=== PATIENT | male | born 1945 | race Caucasian/White ===

== ENCOUNTER 2023-05-13 23:26 | Emergency (ER) | payer MEDICARE, MEDICAID, SELFPAY ==
[2023-05-13 23:29] VITALS: BP 209/109; PULSE 110; RESP 16; O2SAT 93
--- NOTE | 2023-05-13 23:30 | DI.RAD_ITS ---
Exam(s) XR FEMUR LT EXAM: XR FEMUR LT CLINICAL HISTORY: hip pain, fall. TECHNIQUE: 2D digital imaging was performed. COMPARISON: No exams were available for comparison FINDINGS: 3 views No evidence of hip nor femur fracture. No hip joint space narrowing. Bone density normal. No osseo us lesions. IMPRESSION: No fracture evident. DATA REPOSITORY: RADIATION DOSE DELIVERED:
--- NOTE | 2023-05-13 23:30 | DI.RAD_ITS ---
Exam(s) XR CHEST 1V IN DI DEPT EXAM: XR CHEST 1V IN DI DEPT CLINICAL HISTORY: fall, copd hypoxia. TECHNIQUE: 2D digital imaging was performed. COMPARISON: CT CT CHEST PE ABD PELVIS W from 05/14/2023 FINDINGS: Single AP portable view. Heart size is upper normal. The mediastinum is not widened. There are COPD findings. Bilateral interstitial disease also noted there appears to be a possible le ft pneumothorax versus prominent confluent peripheral bullae, as there do appear to be lung markings lateral to the above described finding. Small right pleural effusion noted. No acute fractures. IMPRESSION: As above. Recommend chest CT scan. DATA REPOSITORY: RADIATION DOSE DELIVERED:
--- NOTE | 2023-05-13 23:30 | DI.RAD_ITS ---
Exam(s) XR PELVIS AP EXAM: XR PELVIS AP CLINICAL HISTORY: left hip pain fall. TECHNIQUE: 2D digital imaging was performed. COMPARISON: No exams were available for comparison FINDINGS: Single AP view. No evidence of fracture. Also no hip joint space narrowing. SI joints unremarkable. Bone density n ormal. No osseous lesions IMPRESSION: No significant osseous findings in the pelvis and hips. DATA REPOSITORY: RADIATION DOSE DELIVERED:
[2023-05-13 23:31] VITALS: O2SAT 91
[2023-05-13 23:33] VITALS: BP 209/109; PULSE 105; O2SAT 93
[2023-05-13 23:40] VITALS: PULSE 108; RESP 27; O2SAT 92
--- NOTE | 2023-05-13 23:40 | ED.GENADUL_ITS ---
Discharge Plan Disposition Patient Disposition: Transfer-Acute Inpatient Care Specific Acute Inpt Facility: [facility] Discharge Details Chief Complaint: Fall/Non TraumaCriteria Clinical Impression: Pelvic fracture, Hypoxia, Tachycardia, Pelvic hematoma, male Primary Care Provider: Eyad Gambino ED Provider: Eyad Garrett Home Meds and New Rx's Prescriptions: No Action furosemide 40 mg Tablet 40 mg PO DAILY Medical Decision Making 77-year-old male history of COPD on home oxygen, presents after fall while ambulating in the dark with his walker, fell onto his left side hitting his hip, pain to left hip, no to be tachycardic hypertensive and hypoxic on arrival, requiring nasal cannula at his baseline rate, hypertension and tachycardia likely related to pain, alert oriented interactive no evidence of cranial thoracic or abdominal trauma, bilateral motion of lower extremities intact however pain at left hip with movement of left lower extremity, warm well- perfused extremities neurovascular exam intact. Consider contusion versus dislocation versus fracture of hip versus pelvic fracture. Low suspicion for intracranial injury or thoracoabdominal trauma. Trial of Toradol Tylenol Lidoderm patch, screening x-ray AP pelvis and left femur. 2: 50 initial x-ray was read as concern for pneumothorax however CT chest more consistent with multiple large bulla, initial CT image of abdomen pelvis concerning for pelvic fracture and possible pelvic hematoma, awaiting official read, have added type and screen patient is receiving initial fluid bolus, will consider transfusion given concern for pelvic source of bleeding 3: 25 superior and inferior left pubic ramus fracture with large pelvic hematoma and active extravasation. Have ordered 2 units PRBC given active bleeding and vital signs. Discussed case with trauma team at [facility], Dr. Hutchison has acceptedfor transfer. Evidence of chronic/subacute T1 and T12-L1 L4 compression fractures, no neck discomfort no neurologic dysfunction, given history and physical low suspicion for cervical spine fracture, also patient severely kyphotic and requiring respiratory support with nonrebreather at this point I do not wish to limit his respiratory effort any further with a c-collar. HPI General Date/Time Provider Initiated Documentation: 05/13/23 23:37 . HPI Narrative: 77-year-old male history of COPD on 2 L home nasal oxygen, presents after tripping in the dark this evening while ambulating with his walker, fell onto his left side endorsing left hip pain, no head injury no loss of consciousness no other complaints at this time. Related Data Home Medications Medication Instructions Recorded Confirmed furosemide 40 mg tablet 40 mg PO DAILY 05/13/23 05/13/23 Allergies Allergy/AdvReac Type Severity Reaction Status Date / Time No Known Allergies Allergy Unverified 05/13/23 23:43 Review of Systems Narrative: Review of Systems Constitutional: negative Eyes: negative ENT: negative Cardiovascular: negative Respiratory: negative Gastrointestinal: negative : negative Musculoskeletal: Hip pain Skin: negative Neurologic: negative Psych: negative PFSH All Active Problems (Updated 05/14/23 @ 03:30 by Eyad Garrett MD) Pelvic fracture (Acute) Hypoxia (Acute) Tachycardia (Acute) Pelvic hematoma, male (Acute) Social History Smoking/Tobacco Use Status: Former Tobacco Use Smoking risk assessment performed?: Yes Alcohol Intake: never Drug use: Current Sobriety Substance use type: does not use Do you feel safe at home: Yes Do you feel safe in your relationship?: Yes Exam Narrative Exam Narrative: Physical Examination General: alert, awake, cooperative, resting comfortably, no acute distress HEENT: normocephalic, atraumatic; PERRL, EOM intact, conjunctiva normal; no nasal discharge; moist mucous membranes, oral and pharyngeal mucosa normal, tolerating secretions Neck: supple, trachea midline; full ROM Chest: normal to inspection Respiratory: normal respiratory effort, speaking in full sentences, clear to auscultation, no wheezing, rales or rhonchi Cardiac: regular rate, regular rhythm, S1S2 intact, no murmurs rubs or gallops GI: abdomen soft, non-tender, non-distended; no palpable mass or hep atosplenomegaly Skin: no lesions, rashes or trauma appreciated Neuro: AAOx3, normal speech, moving all extremities Extremities: Pelvis stable, able to raise both legs off of bed however discomfort in left hip with movement, range of motion bilateral knees ankles feet intact, warm well perfused extremity sensate no crepitus deformity or foreshortening appreciated Psych: Appropriate mood and affect
[2023-05-13 23:47] VITALS: BP 177/101; PULSE 106; PULSE 107; RESP 29; O2SAT 97
[2023-05-13 23:50] VITALS: PULSE 109; RESP 30
[2023-05-14] VITALS (51 sets, daily range): BP systolic 67–205; BP diastolic 48–133; PULSE 108–129; RESP 18–31; TEMP 36.2; O2SAT 87–94
[2023-05-14] MEDS: Acetaminophen 325 MG TAB 650 MG PO (00:01)
[2023-05-14] MEDS: Lidocaine 5% Patch 1 PATCH TP (00:02)
[2023-05-14] MEDS: Ketorolac 15 MG/ML VIAL IM (00:02)
--- NOTE | 2023-05-14 01:45 | RT.EKG_ITS ---
APPROVED REPORT Exam: Resting ECG Reason for Exam: tachycardia Patient Location: E HR:128 bpm ECG Measurements Heart Rate 128 AXIS NM 176 P 56 QRSd 71 QRS 256 QT 289 T 26 QTc 421 Conclusion Sinus tachycardia...rate> 99 Inferior infarct, old...Q >35mS, II III aVF Consider anterior infarct...Q >30mS in V2-V5 sinus tach, left axis, normal intervals
--- NOTE | 2023-05-14 01:45 | DI.CT_ITS ---
Exam(s) CT CHEST PE ABD PELVIS W EXAM: CT CHEST PE ABD PELVIS W CLINICAL HISTORY: tachy, hypoxic hx copd fall abd pain left hip pain. TECHNIQUE: Imaging Protocol: Axial CT angiography was performed with multi-slice acquisition and m ulti-planar and/or 3D reconstructions. CONTRAST MATERIAL: Intravenous: Omnipaque 350 Contrast volume:100 ml Oral: None COMPARISON: No exams were available for comparison FINDINGS: CHEST: PULMONARY ARTERIES: There are no intra-arterial filling defects to suggest the presence of acute pulm onary emboli. LUNGS: There is severe COPD findings including severe bullous disease bilaterally, more prominent and confluent on the left side and this accounting for the appearance of the chest x-ray. There is no t rue pneumothorax. There is some atelectasis/infiltrate in both lower lobes. Also small bilateral pl eural effusions. MEDIASTINUM: There is no hilar nor mediastinal adenopathy. Visualized thyroid unremarkable. CARDIAC: Heart size is normal. There is no pericardial effusion. There is no significant shift of t he interventricular septum.Caliber thoracic aorta is enlarged with ascending thoracic aorta measuring 4.1 cm. There is no dissection evident.. OSSEOUS: There is severe vertebra plana compression fracture of T12. There is compression fracture o f superior endplate of L1. These are age indeterminate.Also compression fracture of T7 which does no t appear acute.. ABDOMEN: Respiratory motion artifact. LIVER: There are no focal hepatic lesions nor dilatation of intrahepatic ducts. GALLBLADDER/BILIARY: No obvious gallbladder pathology. CBD is not dilated. PANCREAS: No evidence of pancreatic mass nor dilatation of the pancreatic duct. SPLEEN: Spleen is not enlarged. There are no intrasplenic lesions. Splenic and portal veins are paz nt. ADRENALS: There are no significant adrenal masses. KIDNEYS:No cysts evident. No calculi nor hydronephrosis. No solid renal masses. ABDOMINAL AORTA: Abdominal aorta is atherosclerotic and there is an abdominal aortic aneurysm which e xhibits maximum diameter of 3.7 cm. 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 No aneurysm of the left common iliac artery. LYMPH NODES: There is no retroperitoneal or para-aortic adenopathy. ABDOMINAL WALL/GI: No evidence of significant anterior abdominal wall hernia. No bowel obstruction. PELVIS: There is a right inguinal hernia which contains nonobstructed bowel loops. There is no bowel obstruction. There is also a left inguinal hernia which contains fat but no bowel loops. There is fracture of the medial aspect of the pubic rami on the left side without displacement. Ther e is significant hematoma within the pelvis adjacent to the fracture and this hematoma contains hyper dense material consistent with active hemorrhage. This hematoma measures approximately 7 cm AP x 4 c m wide and also involves the left obturator internus muscle. LYMPH NODES: There is no intrapelvic nor inguinal adenopathy. GI: No evidence of appendicitis.No evidence of sigmoid diverticulitis. URINARY BLADDER: Urinary bladder is deviated slightly towards the opposite-right side due to the sergio kevin. Wall the urinary bladder on the left side is thickened. Bladder is not distended. REPRODUCTIVE: Prostate gland size upper normal. OSSEOUS: No significant osseous lesions. IMPRESSION: 1. No evidence of acute pulmonary emboli nor pulmonary infarction. 2. Severe confluent bolus changes in the lungs, left more so than right and accounting for the appear ance of the chest x-ray earlier today. There is no true pneumothorax. Mild infiltrates in lung base s and small bilateral pleural effusions. 3. T7 and T12 compression fractures. Also L1. Age indeterminate. 4. There fractures in left anterior hemipelvis adjacent the symphysis pubis with a large adjacent hem atoma in the pelvis and evidence of active bleeding. 5. Bilateral inguinal hernias. The right inguinal hernia contains loop of bowel but without evidence of obstruction. The left contains fat only. 6. Abdominal aortic aneurysm with maximum external diameter 3.7 cm. There is also an aneurysm of th e right common iliac artery with diameter 1.9 cm. RADIATION DOSE DELIVERED: 1,148.42mGy.cm Total DLP DATA REPOSITORY: All CT scans at this facility are submitted to the National Radiology Data Registry (NRDR) Dose Index Registry (DIR) with the [employer] (A[employer]). RADIATION OPTIMIZATION: All CT scans at this facility use at least one of these dose optimization te chniques: automated exposure control; mA and/or kV adjustment per patient size (includes targeted exa ms where dose is matched to clinical indication); or iterative reconstruction.
--- NOTE | 2023-05-14 01:47 | DI.VRAD_ITS ---
PROCEDURE INFORMATION: Exam: XR Pelvis Exam date and time: 05/14/2023 12:20 AM Age: 77 years old Clinical indication: Injury or trauma; Blunt trauma (contusions or hematomas); Left; Injury date: 05/13/23; Injury details: Hip pain, fall TECHNIQUE: Imaging protocol: Radiologic exam of the pelvis. Views: 1 or 2 view. COMPARISON: No relevant prior studies available. FINDINGS: Bones/joints: No fracture or dislocation. Mild degenerative changes at both hips. Soft tissues: No significant abnormality IMPRESSION: No acute findings Dictated and Authenticated by: Ronny Tiwari MD. Ordering:TRUMAN Castano MD
--- NOTE | 2023-05-14 01:48 | DI.VRAD_ITS ---
PROCEDURE INFORMATION: Exam: XR Left Femur Exam date and time: 05/14/2023 12:22 AM Age: 77 years old Clinical indication: Injury or trauma; Blunt trauma; Thigh or upper leg; Left; Injury date: 05/13/22; Injury details: Hip pain, fall TECHNIQUE: Imaging protocol: Radiologic exam of the left femur. Views: 2 views. COMPARISON: CR XR PELVIS AP 05/14/2023 12:20 AM FINDINGS: Bones/joints: No fracture or dislocation. Mild degenerative changes at the hip and knee. Soft tissues: No significant abnormality Vasculature: Vascular calcifications. IMPRESSION: No acute findings Dictated and Authenticated by: Ronny Tiwari MD. Ordering:TRUMAN Castano MD
[2023-05-14 01:58] LABS: BE (Venous) 2 mmol/L (-2-3); HCO3 (Venous) 26 mmol/L (23-28); O2 Sat (Venous) 92 %; TCO2 (Venous) 23 mmol/L (24-29); pCO2 (Venous) 40 mmHg (41-51); pH (Venous) 7.43 (7.31-7.41); pO2 (Venous) 64 mmHg
--- NOTE | 2023-05-14 01:59 | DI.VRAD_ITS ---
PROCEDURE INFORMATION: Exam: XR Chest Exam date and time: 05/14/2023 12:28 AM Age: 77 years old Clinical indication: Patient HX: Fall, copd, hypoxia TECHNIQUE: Imaging protocol: Radiologic exam of the chest. Views: 1 view. COMPARISON: No relevant prior studies available. FINDINGS: Lungs: Coarse reticular interstitial opacities are noted bilaterally. No consolidation. Pleural spaces: There appears to be a pleural line in the left mid to upper lung with increased lucency lateral to it however there are lung markings lateral to this pleural line. Heart/Mediastinum: Heart size within normal limits. Bones/joints: No displaced rib fractures are identified. Degenerative changes in the thoracic spine IMPRESSION: 1. Probable left pneumothorax however lung markings are noted lateral to what appears to be the pleural line. Recommend CT to further evaluate 2. Coarse reticular interstitial opacities bilaterally. In the chronic setting, this can be due to fibrosis. Interstitial edema can be considered in the proper clinical setting. THIS REPORT CONTAINS FINDINGS THAT MAY BE CRITICAL TO PATIENT CARE. The findings were verbally communicated via telephone conference with Dr. Eyad Garrett at 1:58 AM EDT on 05/14/2023. The findings were acknowledged and understood. Dictated and Authenticated by: Ronny Tiwari MD. Ordering:TRUMAN Castano MD
[2023-05-14 02:00] LABS: Abs Immature Grans 0.11 10^3/uL (0.0-0.06); Absolute Basophil Count 0.06 10^3/uL (0.0-0.2); Absolute Eosinophil Count 0.02 10^3/uL (0.0-0.7); Absolute Monocyte Count 1.21 10^3/uL (0.1-0.8); Absolute Neutrophil Count 16.51 10^3/uL (1.2-6.7); Basophils % 0.3; Eosinophils % 0.1; HCT 44.7 % (40.0-50.0); HGB 15.1 g/dL (13.5-17.5); Immature Grans % 0.6; Lymphocytes % 3.9; MCH 29.9 pg (27.0-33.0); MCHC 33.8 % (32.0-36.0); MCV 89 fL (80-95); MPV 9.9 fL (8.0-11.0); Monocytes % 6.5; Neutrophils % 88.6; Platelet Count 212 10^3/uL (130-400); RBC 5.05 10^6/uL (4.36-5.78); RDW 13.9 % (11.8-14.1); RDW-SD 44.6 fL; WBC 18.63 10^3/uL (4.4-10.8)
[2023-05-14 02:01] LABS: Absolute Lymphocyte Count 0.73 10^3/uL (1.2-3.4)
[2023-05-14] MEDS: Omnipaque 350 MG/ML 100 ML BTL IJ (02:06)
[2023-05-14] MEDS: Normal Saline - Diluent 50 ML VIAL IJ (02:06)
[2023-05-14] MEDS: Normal Saline Flush 10 ML SYR IVP (02:07)
[2023-05-14 02:16] LABS: PTT Activated 26.6 sec (21.5-31.9); Prothrombin Time 10.6 sec (9.3-11.0)
[2023-05-14 02:27] LABS: ALT 23 U/L (16-63); AST 22 U/L (15-37); Albumin 3.2 g/dL (3.4-5.0); Alkaline Phosphatase 101 U/L (46-116); Anion Gap 9.8 mmol/L (3-11); BUN 23 mg/dL (7-18); Bilirubin, Total 0.9 mg/dL (0.2-1.0); CO2 24.2 mmol/L (21.0-32.0); CREATININE 0.9 mg/dL (0.70-1.30); Calcium 9.3 mg/dL (8.5-10.1); Chloride 95 mmol/L (98-107); Estimated GFR 88.51 (mL/min/1.73m2); Glucose 134 mg/dL (74-106); NT-proBNP 202 pg/mL (<300); Potassium 4.5 mmol/L (3.5-5.1); Sodium 129 mmol/L (136-145); TSH (W/Ref FT4) 3.93 uIU/mL (0.36-3.74); Total Protein 7.5 g/dL (6.4-8.2); Troponin I < 50 ng/L (<or=60)
[2023-05-14 02:40] LABS: COVID-19 PCR Negative (Negative); Influenza A PCR Negative (Negative); Influenza B PCR Negative (Negative); RSV PCR Negative (Negative)
[2023-05-14 02:43] LABS: FREE T4 1.04 ng/dL (0.76-1.46)
[2023-05-14 02:55] LABS: Source Nasopharynx
[2023-05-14] MEDS: Normal Saline 1,000 ML 1000 ML IV (02:59)
--- NOTE | 2023-05-14 03:08 | DI.VRAD_ITS ---
PROCEDURE INFORMATION: Exam: CTA Chest With Contrast Exam date and time: 05/14/2023 2:12 AM Age: 77 years old Clinical indication: Abdominal pain; Generalized; Other: Tachy, HX copd; Patient HX: Tachy, hypoxic HX copd fall abd pain left hip pain TECHNIQUE: Imaging protocol: Computed tomographic angiography of the chest with contrast. Exam focused on the arteries. 3D rendering (Not supervised by radiologist): MIP and/or 3D reconstructed images were created by the technologist. Radiation optimization: All CT scans at this facility use at least one of these dose optimization techniques: automated exposure control; mA and/or kV adjustment per patient size (includes targeted exams where dose is matched to clinical indication); or iterative reconstruction. Contrast material: OMNIPAQUE 350; Contrast volume: 100 ml; Contrast route: INTRAVENOUS (IV); COMPARISON: XR CHEST 1V IN DI DEPT 05/14/2023 12:28 AM FINDINGS: Pulmonary arteries: No evidence of pulmonary embolus. Aorta: Tortuosity of the thoracic aorta with scattered atherosclerotic calcifications. No aneurysmal dilatation or dissection. Lungs: Severe bullous changes bilaterally primarily in the upper lobes left worse than right. Bibasilar atelectasis. Pleural spaces: Small bilateral pleural effusions. Heart: Unremarkable. No cardiomegaly. No pericardial effusion. Lymph nodes: Unremarkable. No enlarged lymph nodes. Bones/joints: 60-70% anterior wedging of T7. 80-90% loss of height of T12. No rib fractures. Soft tissues: Unremarkable. IMPRESSION: 1. No pneumothorax. 2. Severe bullous changes left worse than right. This accounts for the finding on the previous chest x-ray. 3. No evidence of pulmonary embolus. 4. Small bilateral pleural effusions. 5. Bibasilar atelectasis. 6. T7 and T12 compression fractures. These are more likely chronic than acute. PROCEDURE INFORMATION: Exam: CT Abdomen And Pelvis With Contrast Exam date and time: 05/14/2023 2:12 AM Age: 77 years old Clinical indication: Abdominal pain; Generalized; Other: Tachy, HX copd; Patient HX: Tachy, hypoxic HX copd fall abd pain left hip pain TECHNIQUE: Imaging protocol: Computed tomography of the abdomen and pelvis with contrast. Radiation optimization: All CT scans at this facility use at least one of these dose optimization techniques: automated exposure control; mA and/or kV adjustment per patient size (includes targeted exams where dose is matched to clinical indication); or iterative reconstruction. Contrast material: OMNIPAQUE 350; Contrast volume: 100 ml; Contrast route: INTRAVENOUS (IV); COMPARISON: CR XR PELVIS AP 05/14/2023 12:20 AM FINDINGS: Lungs: The visualized lung bases are clear Liver: Normal. No mass. Gallbladder and bile ducts: Normal. No calcified stones. No ductal dilation. Pancreas: Multiple punctate calcifications in the head of the pancreas are likely from chronic pancreatitis. No definite pancreatic mass. Spleen: Normal. No splenomegaly. Adrenal glands: Normal. No mass. Kidneys and ureters: Normal. No hydronephrosis. Stomach and bowel: The small and large bowel are normal in caliber. No wall thickening. Appendix: No evidence of appendicitis. Intraperitoneal space: Unremarkable. No free air. No significant fluid collection. Vasculature: Fusiform infrarenal abdominal aortic aneurysm measuring 3.8 x 3.4 cm spanning a length of 5.2 cm. Severe atherosclerotic calcifications of the distal abdominal aorta and the common iliac arteries. 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 Lymph nodes: Unremarkable. No enlarged lymph nodes. Urinary bladder: The bladder is not well-distended. Wall thickening of the bladder is likely due to lack distention. Reproductive: Unremarkable as visualized. Bones/joints: Fracture of the medial left superior and inferior pubic rami. No significant displacement or angulation. There is a large hematoma within the pelvis adjacent to the fracture. There are linear hyperdensities within this hematoma indicating active bleeding. This measures approximately 9 x 9.6 cm. There is 20-30% anterior wedging of L1 with a faint band of sclerosis of the upper endplate and probable Schmorl's node. There is also depression of the superior endplate of L4. Soft tissues: Bilateral inguinal hernias. The right contains a loop of bowel. The left contains fat. Other findings: Motion artifact limits the sensitivity of the study. IMPRESSION: 1. Left superior and inferior pubic rami fractures near the pubic symphysis with adjacent large hematoma extending into the pelvis with evidence for active bleeding. 2. L1 and L4 fractures may be subacute. 3. 3.8 x 3.4 cm fusiform infrarenal abdominal aorta aneurysm. 4. Bilateral inguinal hernias. Left contains a loop of bowel. No evidence of obstruction. The right contains fat. THIS REPORT CONTAINS FINDINGS THAT MAY BE CRITICAL TO PATIENT CARE. The findings were verbally communicated via telephone conference with Dr. Eyad Garrett at 3:07 AM EDT on 05/14/2023. The findings were acknowledged and understood. Dictated and Authenticated by: Ronny Tiwari MD. Ordering:TRUMAN Castano MD
[2023-05-14] MEDS: Ondansetron 4 MG/2 ML VIAL IVP (03:12)
[2023-05-14] MEDS: fentaNYL 100 MCG/2 ML VIAL 25 MCG IVP (03:12)
--- NOTE | 2023-05-14 11:09 | NUR.NOTE ---
Accessed Pt chart to see if [place] [facility], Ashli, was asking because she has blood for him and needed to know if the patient needed it Nursing Note:
--- NOTE | 2023-05-16 09:28 | NUR.NOTE ---
Accessed pt chart to determine number of EKG orders. Duplicate order cancelled. Nursing Note:
== END 2023-05-14 05:10 | disposition short-term general hospital (02) ==
PROVIDERS: Emergency Provider Emergency Medicine; PCP Family Medicine
DX: M25.552 Pain in left hip (principal); S32.512A Fracture of superior rim of left pubis, initial encounter for closed fracture; W01.10XA Fall on same level from slipping, tripping and stumbling with subsequent striking against unspecified object, initial encounter; R09.02 Hypoxemia; R00.0 Tachycardia, unspecified; N50.1 Vascular disorders of male genital organs
CPT/HCPCS: 71275; 73552; 74177; 80053; 82805; 86850; 86900; 86901; 86920; 87637; 93005; 96374; 99285; 71045; 72170; 83880; 84439; 84443; 84484; 85025; 85610; 85730; 93010; 99283; J1885; J2405; J3010; J3490; P9016